=== PATIENT | female | born 1980 | race Caucasian/White ===

== ENCOUNTER 2018-04-26 12:27 | Emergency (ER) | payer OTHER | END 2018-04-26 16:14 | disposition home or self-care (01) | LOC: FTE 12:27 | DX: S01.81XA Laceration without foreign body of other part of head, initial encounter (principal); E11.9 Type 2 diabetes mellitus without complications; W01.190A Fall on same level from slipping, tripping and stumbling with subsequent striking against furniture, initial encounter; Y92.9 Unspecified place or not applicable; Z79.4 Long term (current) use of insulin | CPT/HCPCS: 12011; 99283-25 ==